=== PATIENT | female | born 1955 | race Caucasian/White ===

== ENCOUNTER 2018-03-15 10:52 | Emergency (ER) | payer OTHER ==
[~2018-03-15] VITALS: Ht 162.6 cm; Wt 90.7 kg
[2018-03-15 10:57] VITALS: BP 154/81
--- NOTE | 2018-03-15 10:58 | NUR ---
ARRIVAL PATIENT ARRIVED TO ED3 VIA W/C, C/O OF HEADACHE FOR THE PAST WEEK,CHEST PAIN AND NOTICED A RASH TO THE NECK AND THE BACK OF THE HEAD, DID TAKE TYLENOL FOR PAIN LAST NIGHT, UNABLE TO SLEEP, SPOKE WITH DAUGHTER AND SHE SUGGESTED SHE COME TO THE ED TO BE EVALUATED FOR THE SHINGLES. NO CARDIAC HISTORY PER PATIENT.
--- NOTE | 2018-03-15 11:09 | ER.PDOC ---
General Chief Complaint: Skin Rash/Abscess Stated Complaint: RASH Time seen by MD: 11:11 Source: patient Exam Limitations: no limitations History of Present Illness Timing/Duration: 24 hours Severity: mild Location: facial, neck Quality: painful Identified Cause: yes Exposure: infectious illiness Allergies: Coded Allergies: No Known Allergies (Unverified , 03/15/18) Home Meds No Active Prescriptions or Reported Meds Past Medical History Medical History: no pertinent history Surgical History: tubal LMP (females 10-50): postmenopause Family History Significant Family History: no pertinent family hx Social History Smoking: non-smoker Alcohol Use: none Drug Use: none Reviewed Nursing Reviewed: Vital Signs, Abn. Noted All Other Systems: Reviewed and Negative Physical Exam General Appearance: alert, no distress Skin: with erythema, skin rash, lesion Location: face, scalp, neck, chest Character: asymmetric With: warmth, tenderness, inflammation, crusting Extremities: non-tender, nml ROM, no edema EENT: eyes nml inspection, lips/gums nml, pharynx nml Neck: trachea midline, no swelling Respiratory: no resp. distress, breath sounds nml CVS: reg. rate & rhythm, heart sounds nml Abdomen: non-tender, no organomegaly NEURO/PSYCH: oriented x 3, CN's nml as tested, motor nml, sensation nml, mood/ affect nml EKG/XRAY/CT/US EKG: NSR, no ST T wave changes Departure Time of Disposition: 12:00 Disposition: 01 HOME, SELF-CARE Impression: Primary Impression: Herpes zoster without complication Condition: Stable Scripts No Active Prescriptions or Reported Meds Duration or Time Spent with Pa: 30 MIN BALJINDER HAMLIN MD Mar 15, 2018 11:09
[2018-03-15 11:23] VITALS: BP 142/81
[2018-03-15 11:24] VITALS: BP 154/81
--- NOTE | 2018-03-15 12:14 | PCM.EKG ---
[facility] Test Date: 2018-03-15 Test Time: 10:57:35 Pat Name: HUMA RAMOS Department: Room: Gender: F [place]: [place] : 1955 Requested By: BALJINDER HAMLIN Order Number: [id number] Reading MD: Measurements Intervals [place] Rate: 91 P: 56 AK: 152 QRS: -30 QRSD: 86 T: 79 QT: 366 QTc: 450 Interpretive Statements Normal sinus rhythm Left axis deviation Nonspecific ST abnormality Abnormal ECG No previous ECG available for comparison Please click the below link to view image of tracing.
== END 2018-03-15 11:20 | disposition home or self-care (01) ==
LOC: ER 10:52
DX: B02.9 Zoster without complications (principal); Z98.51 Tubal ligation status
CPT/HCPCS: 93005; 99283

== ENCOUNTER 2018-03-16 18:23 | Emergency (ER) | payer OTHER ==
[~2018-03-16] VITALS: Ht 165.1 cm; Wt 90.7 kg
[2018-03-16 18:27] VITALS: BP 138/77
[2018-03-16] MEDS ORDERED: SOLU-MEDROL IV STA (19:37)
[2018-03-16] MEDS ORDERED: ZOFRAN IV STA (19:42)
[2018-03-16] MEDS ORDERED: ANCEF 1 GM in NS 100ML 100 ML IV STA (19:42)
--- NOTE | 2018-03-16 19:42 | ER.PDOC ---
General Chief Complaint: Nausea,Vomiting,Diarrhea Stated Complaint: NAUSEA/VOMITING Time seen by MD: 19:39 Source: patient Exam Limitations: no limitations History of Present Illness Initial Comments 62 year old white female with nausea and vomiting after taking Tramadol and Valcyclovir yesterday. Developed blistery lesions on the face which do not cross midline four days ago. Seen yesterday in ER and was started of Famvir and Tramadol but developed nausea and vomiting. History of adverse reaction in the past from meds. Timing/Duration: 24 hours Severity: mild Location: facial, neck (left side) Quality: painful, burning Identified Cause: yes Allergies: Coded Allergies: No Known Allergies (Unverified , 03/15/18) Home Meds No Active Prescriptions or Reported Meds Past Medical History Medical History: no pertinent history Surgical History: no surgical history LMP (females 10-50): postmenopause Social History Smoking: non-smoker Alcohol Use: none Drug Use: none Constitutional: no symptoms reported EENTM: see HPI Respiratory: no symptoms reported Cardiovascular: no symptoms reported Gastrointestinal: see HPI Genitourinary: no symptoms reported Skin: no symptoms reported Psychiatric/Neurological: no symptoms reported Endocrine: no symptoms reported Hematologic/Lymphatic: no symptoms reported Physical Exam General Appearance: alert, no distress Skin: with erythema (with blisters face and exudates. Do not cross midline) Location: face, neck Character: asymmetric With: warmth, tenderness, swelling, thickening, scaling, weeping, crusting Extremities: non-tender, nml ROM, no edema EENT: eyes nml inspection, lips/gums nml, pharynx nml Neck: trachea midline, no swelling Respiratory: no resp. distress, breath sounds nml CVS: reg. rate & rhythm, heart sounds nml Abdomen: non-tender, no organomegaly Rectal: non-tender NEURO/PSYCH: oriented x 3, CN's nml as tested, motor nml, sensation nml, mood/ affect nml Departure Time of Disposition: 20:31 Disposition: 01 HOME, SELF-CARE Impression: Primary Impression: Shingles Qualified Codes: B02.8 - Zoster with other complications Additional Impressions: Nausea & vomiting Qualified Codes: R11.2 - Nausea with vomiting, unspecified Adverse drug effect Qualified Codes: T50.905A - Adverse effect of unspecified drugs, medicaments and biological substances, initial encounter Condition: Stable Referrals: PCP,UNKNOWN (PCP) PRIMARY CARE PROVIDER Scripts No Active Prescriptions or Reported Meds Comments Follow up PCP Discontinue tramadol Continue Famciclovir Gabapentin Keflex Prednisone taper Duration or Time Spent with Pa: 30 ELENI MACK MD Mar 16, 2018 19:42
[2018-03-16] MEDS ORDERED: ANCEF ONE (19:45)
[2018-03-16] MEDS ORDERED: ZOFRAN ONE (19:45)
[2018-03-16] MEDS ORDERED: SOLU-MEDROL ONE (19:45)
[2018-03-16] MEDS ORDERED: NS 100ML 100 ML IV ONE (19:45)
[2018-03-16 21:19] VITALS: BP 138/77
== END 2018-03-16 21:04 | disposition home or self-care (01) ==
LOC: EDBD 18:23 → ER 18:23
DX: B02.9 Zoster without complications (principal); R11.2 Nausea with vomiting, unspecified; T37.5X5A Adverse effect of antiviral drugs, initial encounter; T40.4X5A Adverse effect of other synthetic narcotics, initial encounter; Y92.89 Other specified places as the place of occurrence of the external cause
CPT/HCPCS: 96365; 96375; 99284; J0690 ×2; J2405; J2930; J7050 ×2

== ENCOUNTER → 2024-04-15 | Outpatient (CLI) | payer MEDICARE, MEDICAID | END | disposition home or self-care (01) | LOC: RAD 09:06 | PROVIDERS: ATTEND Specialist | DX: I08.0 Rheumatic disorders of both mitral and aortic valves (principal); I11.0 Hypertensive heart disease with heart failure; I50.32 Chronic diastolic (congestive) heart failure; R06.02 Shortness of breath; E78.5 Hyperlipidemia, unspecified; E03.9 Hypothyroidism, unspecified; E11.9 Type 2 diabetes mellitus without complications; Z72.0 Tobacco use | CPT/HCPCS: 78452; 93306; A9500 ==